=== PATIENT | female | born 1940 | race Caucasian/White ===

== ENCOUNTER 2025-01-29 12:59 | Inpatient (IN) | payer MEDICARE, OTHER, SELFPAY ==
[2025-01-29 08:45] VITALS: BP 177/59
[2025-01-29 09:47] VITALS: BMI 21.2
--- NOTE | 2025-01-29 09:50 | ED.GENMED ---
History of Present Illness
General
Chief Complaint: Breathing Problem
Source: patient and family
Time Seen by Provider: 01/29/25 09:30
History of Present Illness
History of Present Illness:
Note:
CHIEF COMPLAINT(S)
Cough, shortness of breath
HISTORY OF PRESENT ILLNESS
An 84-year-old female with a significant cardiac history presents with a two-day history of cough and shortness of breath. The patient reports experiencing dyspnea when lying flat the previous night. She also describes having a subjective fever at
home, for which she self-administered Tylenol, and a mild sore throat. The patient mentions a history of multiple valve replacements, including a [place]as valve, and is currently on Coumadin therapy. Her son, who also had upper respiratory symptoms
recently, accompanies her. She has a documented history of a pacemaker and an aortic valve replacement. Her INR has been well-managed with goals between 2.5 and 3.5. 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 The
patient also has a history of atrial fibrillation. There is no report of lower extremity edema, chest pain, or hemoptysis.
PAST MEDICAL AND SURGICAL HISTORY
History of multiple valve replacements, including a [place]. Manas valve and aortic valve replacement. History of atrial fibrillation and pacemaker insertion.
ADDITIONAL HISTORY OBTAINED FROM SOURCES OTHER THAN PATIENT
The patients son-in-law, a retired cold water machine operator, provided additional history, confirming her recent symptoms and medical background.
CHRONIC MEDICAL CONDITIONS SIGNIFICANTLY AFFECTING CARE
Atrial fibrillation, [place] valve with management with Coumadin with an INR goal of 2.5 to 3.5. Epistaxis
MEDICATIONS
Coumadin, Lasix.
PHYSICAL EXAM
General: Alert, no acute distress.
Skin: Warm, dry.
Head: Normocephalic, atraumatic.
Neck: Supple, trachea midline.
Eyes, Ears, Nose, Mouth, and Throat: Oral mucosa moist.
Cardiovascular: Normal peripheral perfusion, no edema.
Respiratory: Respirations are non-labored. few crackles to L and R base, no wheezes
CV: hear
Gastrointestinal: Abdomen nondistended.
Back: Normal range of motion, normal alignment.
Musculoskeletal: Normal range of motion, normal strength.
Neurological: Alert and oriented to person, place, time, and situation, no focal neurological deficit observed.
Psychiatric: Cooperative, appropriate mood & affect.
PROBLEM LIST
- Acute: Cough, shortness of breath, subjective fever
- Chronic: Atrial fibrillation, managed with Coumadin; pacemaker in situ; history of multiple valve replacements
DIFFERENTIAL DIAGNOSIS
The Differential Diagnosis includes, in no particular order and is not limited to:
1. Congestive heart failure
2. Respiratory infection
3. Pulmonary embolism
4. Medication side effect
5. Valvular heart disease
6. Atrial fibrillation-related symptoms
7. Chronic obstructive pulmonary disease (COPD) exacerbation
8. Pulmonary edema
9. Anemia
10. Cardiac arrhythmia
EKG
My independent EKG interpretation is:
- Rhythm: Ventricular-paced rhythm
- Heart rate: 60 bpm
- Note: Normal conduction of pacemaker
Disposition:
SUMMARY OF ENCOUNTER
The patient, an 84-year-old female with a significant cardiac history, presented to the emergency department with a cough and shortness of breath. Physical examination revealed rales and orthopnea. Laboratory findings indicated a BNP of 1650, a
negative troponin, and mild elevations of AST and ALT, possibly due to liver congestion. Her INR was consistent with Coumadin use at 2.35. White blood cell count and hemoglobin levels showed slight abnormalities. Due to her history of valve
replacements, orthopnea, and hypoxia, diuresis was initiated. The patient was placed on humidified oxygen therapy due to a history of nosebleeds, and oxymetazoline was ordered for nasal congestion. The primary care physician was contacted to discuss
her management, and admission was decided due to her hypoxia with oxygen saturation at 83%.
DISPOSITION
Admit
ASSESSMENT
The patients symptoms and laboratory findings suggest possible congestive heart failure exacerbation or pulmonary edema, likely related to her cardiac history and valve replacements.
EMERGENCY TREATMENTS ADMINISTERED
Diuresis therapy, humidified oxygen therapy, oxymetazoline for nasal congestion.
PLAN
Due to the patients severe hypoxia and underlying cardiac conditions, admission for further management and monitoring was decided. Initiation of diuresis to manage potential heart failure exacerbation and to monitor her response to treatment.
INDEPENDENT REVIEW OF LABS AND INTERPRETATION OF TESTS
- My independent review of BNP indicates significant elevation at 1650, suggesting volume overload or heart failure exacerbation.
- My independent review of the Troponin test shows negative results at 0.0, indicating no acute cardiac ischemia.
- My independent review of CMP shows mild elevation in AST and ALT, potentially due to liver congestion; otherwise, CMP is unremarkable.
- My independent review of CBC indicates a white blood cell count of 11.9, hemoglobin of 11.2, suggesting mild leukocytosis and anemia.
PATIENT EDUCATION AND COUNSELING
The patient and family were educated on the potential causes of her symptoms, including possible heart failure exacerbation, and the need for further monitoring and treatment in a hospital setting.
FOLLOW-UP INSTRUCTIONS
Follow-up with primary care and cardiology is recommended after discharge from the hospital to ensure appropriate management of her chronic conditions and to adjust therapy as needed.
MEDICATION RECONCILIATION
Oxymetazoline was ordered for nasal congestion management. Medication reconciliation confirms continued use of Coumadin and initiation of diuretic therapy.
MEDICAL DECISION MAKING
1. Number and Complexity of Problems Addressed: Chronic conditions affecting care include a history of multiple valve replacements, atrial fibrillation, and management with Coumadin. Differential Diagnosis includes congestive heart failure,
respiratory infection, pulmonary embolism, and valvular heart disease.
2. Data:
- Category 1: My independent interpretation of labs including BNP, Troponin, CMP, and CBC.
- Category 2: Historical information obtained from the patients son-in-law.
- Category 3: Discussion of care management conducted with the patients primary care physician.
3. Risk: Consideration was given for escalating care due to her symptoms and underlying comorbidities. The decision to admit was made based on the severity of her hypoxia and need for inpatient monitoring and treatment adjustment.
DIAGNOSIS
- Congestive Heart Failure (ICD-10: I50.9)
- Hypoxemia (ICD-10: R09.02)
- Atrial Fibrillation (ICD-10: I48.91)
- Anemia, Unspecified (ICD-10: D64.9)
Phy Exam
Physical Exam
Physical Exam:
.
Scores
Heart Failure Risk
Heart Failure Risk Score: Yes
History of Stroke or TIA: No
History of intubation for respiratory distress: No
Heart rate on ED arrival >/= 110: No
SaO2 <90% on arrival on room air: Yes
HR >/=110 during 3min walk test (or too ill to perform test): Yes
ECG has acute ischemic changes: No
Urea >/=12mmol/L (BUN 33.6mg/dL): Yes
Serum CO2>/=35mmol/L: No
Troponin I or T elevated to DC Level (0.4mg/dL): No
NT-proBNP >/=5,000ng/L (5,000pg/ml): No
HF Risk Score: 4
Admission Status: HIGH RISK 26.1% Consider SNF treatment or admission to hospital
Course
Orders/Labs/Results
Orders:
Orders
01/29/25 09:31
CR Chest - 2 Views Urgent
Comment:
Reason For Exam: cough, sob
01/29/25 09:51
Electrocardiogram (*1) Urgent
Reason for Study: Shortness of Breath
EKG- Treatment ONCE
01/29/25 09:56
Complete Blood Count/With Diff Urgent
Comprehensive Metabolic Panel Urgent
NT-proBNP Urgent
Prothrombin Time Urgent
Troponin I Urgent
01/29/25 10:52
Furosemide [Lasix] 40 mg IV NOW STA
01/29/25 11:07
COVID-19 Antigen Urgent
Source: Nasal Swab
01/29/25 11:31
CARDIOLOGY CONSULT Routine
Consulting Provider: Tiago Avina
Was physician already notified: Yes
01/29/25 12:28
Admit/Transfer Patient As Directed
Co-Sign Provider:
Level of Care: Inpatient admission
Assign to:: Telemetry
Physician / Group: Missael/hospitalist
Diagnosis: CHF
Reason for Telemetry: Acute Heart Failure
Date to Stop Telemetry: 02/01/25
Time to Stop Telemetry: 11:00
Reason for Hospitalization: CHF
Expected length of stay greater than two midnights?: Yes
ELOS- Estimated Length of Stay in days: 5
I certify the patient meets the requirements for IP care: Yes
PRN Pain Medication Management As Directed
May give lesser potent ordered pain med per pt: Yes
preference::
Protocol:: Medication orders for pain may be administered in a
manner that supports deferring to patient preference
when the pt is:
- Requesting an ordered lesser potent pain medication.
Least to most potent pain medications are defined
as: acetaminophen < NSAID < tramadol < opioids
(morphine, oxycodone, hydromorphone).
- Requesting a lesser dose of the same medication IF
ORDERED.
- Requesting a less intrusive route of administration
if both routes are prescribed by the provider (PO <
IV).
01/29/25 12:29
Code Status As Directed
Resuscitation Status: Full Code
01/29/25 12:56
Echo 2D MMode Color/Doppler Routine
Reason for Study: HF
01/29/25 13:35
Procalcitonin Routine
If negative, will antibiotics be d/c'd or not started: Yes
Does the patient have renal or hepatic impairment?: No
Any recent (w/in 48 hrs) physiologic stress (CPR, rhabdo): No
Influenza A+B Rapid Molecular Routine
EDWIGE Source: Nasal Swab
Specimen Description:
01/30/25 06:00
Digoxin IN AM
01/30/25 08:00
Furosemide [Lasix] 40 mg IV DAILY
02/01/25 11:00
DC Protocol for Telemetry ONCE
Abnormal Lab Results
01/29/25
09:56
WBC 11.9 H 10^3/uL
(4.8-10.8)
RBC 3.96 L 10^6/uL
(4.20-5.40)
Hgb 11.2 L g/dL
(12.0-16.0)
Hct 35.3 L %
(37.0-47.0)
MCHC 31.7 L g/dL
(33.0-37.0)
RDW 15.4 H %
(11.5-14.5)
MPV 11.7 H fL
(7.4-10.4)
Abs Immat Gran (auto) 0.1 H 10^3/uL
(0-0.05)
Absolute Neuts (auto) 10.8 H 10^3/uL
(1.4-6.5)
Absolute Lymphs (auto) 0.3 L 10^3/uL
(1.2-3.4)
Absolute Monos (auto) 0.8 H 10^3/uL
(0.1-0.6)
Neutrophils % 90.2 H %
(42.2-75.2)
Lymphocytes % 2.1 L %
(20.5-51.1)
PT 26.0 H Sec
(11.4-14.6)
Carbon Dioxide 32 H mmol/L
(22-30)
BUN 36 H mg/dl
(7-17)
Glucose 124 H mg/dl
(70-99)
AST 52 H U/L
(14-36)
ALT 46 H U/L
(0-35)
01/29/25 09:56
01/29/25 09:56
Vital Signs
Initial and Last Documented VS:
Initial Vital Signs
Temp Pulse Resp BP Pulse Ox
99.8 F 60 18 177/59 91
01/29/25 08:45 01/29/25 08:45 01/29/25 08:45 01/29/25 08:45 01/29/25 08:45
Last Documented Vital Signs
Temp Pulse Resp BP Pulse Ox
99.8 F 60 20 152/47 83
01/29/25 08:45 01/29/25 12:18 01/29/25 09:38 01/29/25 12:18 01/29/25 11:06
*Pulse Oximetry
SaO2: 83
Oxygen Mode of Delivery: Room air
Patient hypoxic: yes
*Critical Care Note
Total Time (30-74mins, 75-104mins- exclusive of procedures): 30 minutes
ED Attending Note
-
Portions of this chart may have been created with voice recognition software.� Occasional wrong word or��sound alike� substitutions may have occurred due to the inherent limitations of voice recognition software.
Discharge Plan
Departure
Patient Disposition: Admit
Date of Disposition: 01/29/25
Time of Disposition: 11:04
Admit to: Telemetry
Presentation/result/management discussed w/ accepting MD/DO: Hospitalist
Discharge Problem:
Acute CHF (congestive heart failure), Cardiac valvulopathy, Hypoxia
Interventions
Interventions:
*Risk Screen - Suicide Last Done: 01/29/25 08:45
*General Assessment Last Done: 01/29/25 08:45
*Neglect/Abuse Screening Last Done: 01/29/25 10:02
*ED COVID-19 Vaccine History Last Done: 01/29/25 08:45
*ED Influenza Vaccine History Last Done: 01/29/25 08:45
ED- Cardiac Assessment Last Done: 01/29/25 10:02
ED- Pulmonary Assessment Last Done: 01/29/25 10:02
[2025-01-29 10:04] LABS: Hematocrit 35.3 % (37.0-47.0); Hemoglobin 11.2 g/dL (12.0-16.0); Mean Corp Hgb Conc. 31.7 g/dL (33.0-37.0); Mean Corpuscular Volume 89.1 fL (81.0-99.0); Nucleated Red Blood Cells % 0 %; Platelet Count 150 10^3/uL (130-400); Red Cell Dist. Width 15.4 % (11.5-14.5)
[2025-01-29 10:20] LABS: INR 2.35; PT 26.0 Sec (11.4-14.6)
[2025-01-29 10:28] LABS: ALT (SGPT) 46 U/L (0-35); AST (SGOT) 52 U/L (14-36); Albumin 4.5 g/dl (3.5-5.0); Alkaline Phosphatase 105 U/L (38-126); Blood Urea Nitrogen 36 mg/dl (7-17); Calcium 9.8 mg/dl (8.4-10.2); Carbon Dioxide 32 mmol/L (22-30); Chloride 100 mmol/L (98-107); Estimated Creatinine Clearance 41 ml/min; Glucose 124 mg/dl (70-99); Potassium 4.3 mmol/L (3.5-5.1); Sodium 135 mmol/L (135-145); Total Protein 7.5 g/dl (6.3-8.2); eGFR > 60.00
[2025-01-29 10:30] LABS: Troponin I 0.021 ng/ml
[2025-01-29 10:46] VITALS: BP 146/46
[2025-01-29 11:00] VITALS: BP 152/47
[2025-01-29 11:29] LABS: COVID-19 Antigen Negative (Negative)
--- NOTE | 2025-01-29 11:32 | HPS.HSE ---
Family Physician
-
Family Physician: Ralph Watters MD
Chief Complaint
-
SOB/ALVARADO/orthopnea
History of Present Illness
HPI: 84-year-old female with PMH of multiple valve replacements including a [place]. [place] valve and aortic valve replacement on Coumadin (INR goal 2.5 to 3.5), atrial fibrillation, s/p pacemaker; p/w two-day history of mild cough, shortness of breath,
and orthopnea
She also described subjective fever at home for which she took Tylenol. She has mild sore throat.
She denies to chest pain, abd pain, or other symptoms.
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
Medical History
Past Medical History
Past Medical History: Reports Other
Additional Past Medical History:
multiple valve replacements including a [place]. Manas valve and aortic valve replacement on Coumadin (INR goal 2.5 to 3.5),
atrial fibrillation,
s/p pacemaker
Past Surgical History: Reports Cardiac (TAVR)
Social History
Tobacco: Non-smoker
Living: With Family
Family History
Family History: Not pertinent
Allergies / Home Medications
Allergies reflects when Allergies were last updated in [employer]
Home Medications with original date entered in [employer]
Allergy/Medication List:
Allergies
Allergy/AdvReac Type Severity Reaction Status Date / Time
No Known Allergies Allergy Unverified 01/29/25 08:51
Home Medications
acetaminophen 325 mg tablet (Tylenol) 650 mg PO Q6HPRN PRN mild pain 01/29/25
atenolol 25 mg tablet 25 mg PO DAILY 01/29/25
digoxin 125 mcg (0.125 mg) tablet 125 mcg PO MOTUWETHFR 01/29/25
diphenhydramine HCl 25 mg capsule (Benadryl) 25 mg PO HSPRN PRN allergies 01/29/25
furosemide 20 mg tablet (Lasix) 20 mg PO DAILY 01/29/25
gabapentin 300 mg capsule 300 mg PO BID 01/29/25
guaifenesin 100 mg/5 mL oral liquid 200 mg PO BIDPRN PRN cough 01/29/25
spironolactone 25 mg tablet 25 mg PO DAILY 01/29/25
Review of Systems
-
Respiratory: Reports See HPI and Trouble Breathing
Cardiac: Denies Chest Pain
Physical Exam
Vital Signs
Vital Signs
Temp Pulse Resp BP Pulse Ox
37.7 C 65 20 177/59 83
01/29/25 08:45 01/29/25 09:38 01/29/25 09:38 01/29/25 08:45 01/29/25 11:06
Physical Exam
General: Well Developed, Well Nourished, Comfortable, Conversant and Respiratory Distress
HEENT: NormoCephalic, Moist mucous membranes, Atraumatic and Oxygen (5L face mask )
Respiratory: Clear, Crackles and Non Labored Respirations; No Accessory Resp Muscle Use
Cardiac: S1/S2 and Regular Rhythm; No Murmur or Rub
GI: Soft, Non Tender, Non Distended and Normal Bowel Sounds; No Organomegaly
Rectal: Deferred by Provider
Musculoskeletal: No Clubbing, No Cyanosis, Edema, Left Lower Extremity and Edema, Right Lower Extremity
Skin: No Rash
Neuro: Awake and Alert
Psych: Calm and Intact Judgment/Insight
Laboratory Results
-
01/29/25 09:56
01/29/25 09:56
Laboratory Results
PT 26.0 Sec (11.4-14.6) H 01/29/25 09:56
INR 2.35 01/29/25 09:56
Total Bilirubin 0.7 mg/dl (0.2-1.3) 01/29/25 09:56
AST 52 U/L (14-36) H 01/29/25 09:56
ALT 46 U/L (0-35) H 01/29/25 09:56
Alkaline Phosphatase 105 U/L (38-126) 01/29/25 09:56
Troponin I 0.021 ng/ml 01/29/25 09:56
Data Reviewed
-
Diagnostic Radiology: Image Personally Visualized and interpreted and Report Reviewed by me
Lab Data: Labs Reviewed by me
Impression/Plan
-
HPI: 84-year-old female with PMH of multiple valve replacements including a [place]. Man[place] valve and aortic valve replacement on Coumadin (INR goal 2.5 to 3.5), atrial fibrillation, s/p pacemaker; p/w two-day history of mild cough, shortness of breath,
and orthopnea
She also described subjective fever at home for which she took Tylenol. She has mild sore throat.
She denies to chest pain, abd pain, or other symptoms.
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
CXR:
1. Mild acute interstitial cardiogenic pulmonary edema.
2. Mild to moderate elevation of the right hemidiaphragm.
3. Moderate to severe cardiomegaly.
4. Previous tricuspid valve replacement.
5. Previous TAVR.
6. Cardiac pacemaker in place.
A/P:
# Acute hypoxic respiratory failure
# Acute on chronic CHF, unknown type, suspect related to underlying valvular disease
83% on RA, placed on 5L face mask (face mask chosen over NS due to easy epistaxis). Wean O2 as tolerated, pt not on home O2.
COVID negative,
check Flu and procal 2/2 subjective fever at home
s/p IV lasix 40 mg in ED, cont IV lasix 40 mg daily
Monitor daily weight, I/O
Check echo
Card CS
Pt follow with Dr Cuevas and Dr Moscoso at [facility], will try to get record.
She has moved to [place], hence will need to reestablish care here
# Suspect non-PA troponin elevation
Follow Trop until peak/plateau
Pt denies to chest pain
# h/o multiple valve replacements including a [place]. Man[place] valve and aortic valve replacement on Coumadin (INR goal 2.5 to 3.5)
# atrial fibrillation s/p pacemaker
Cont [employer] Coumadin, monitor daily INR
DVT ppx: [employer] Coumadin
FC
[2025-01-29] MEDS: LASIX 40 MG IV (12:18)
--- NOTE | 2025-01-29 12:19 | CON.CAR ---
Consultation
Consultation Request
Date/Time Consultation Requested: 01/29/2025, 1131
Date/Time Consultation Performed: 01/29/2025, 1200
Requesting Provider: Dr Canas
Performing Provider: Dr Avina
Reason for Consultation: HF
Medical History
-
Chief Complaint: SOB
History of Present Illness:
Patient is a very pleasant 84-year-old female with a past medical history significant for mechanical mitral valve 1995, single-chamber epicardial pacemaker placed in 2013 with generator change 2022, tricuspid valve replacement 2013 at hospital
[facility], aortic stenosis status post TAVR May 2021, permanent atrial fibrillation, hypertension, heart failure with unknown EF who presents due to worsening shortness of breath and fatigue. Patient states that she has been
experiencing increasing shortness of breath the last 24 hours but has noticed some orthopnea and PND as well. She denies any chest pain, palpitations, lightheadedness, dizziness, near-syncope syncope, or weakness. Trace edema noted by patient and
family as well. Due to worsening shortness of breath, patient presented to hospital for evaluation. Initial evaluation demonstrates BNP of 1650 with a negative troponin. EKG demonstrates V pacing. Patient hypertensive with hypoxia improved with
supplemental O2. Patient has recurrent nosebleeds and sinus issues therefore requesting facemask versus nasal cannula. COVID testing negative. Chest x-ray demonstrates pulmonary edema with cardiomegaly. Patient follows with a supervisor grounds
through [facility], Dr. Beau Cuevas who is retiring and is also now seeing Dr. Kristopher Moscoso again through [facility]. Patient states that she was seen by her cardiologists earlier this year. She reports last
cardiovascular testing was unremarkable 1 year ago. Patient is a non-smoker, no alcohol, no illicits. Patient is a positive family history of heart disease. Records unavailable for review at this time.
Past Medical History
Past Medical History: Other (See HPI)
Past Surgical History: Other (See HPI)
Social History
Tobacco: Non-Smoker
Alcohol: None
Drug: None
Living: With Family
Employment: Retired
Family History
Family History: Other (See HPI)
Allergies / Home Medications
Allergy/AdvReac Type Severity Reaction Status Date / Time
No Known Allergies Allergy Unverified 01/29/25 08:51
�Medication �Instructions �Recorded �Confirmed �Type
acetaminophen 325 mg tablet 650 mg PO Q6HPRN PRN mild pain 01/29/25 01/29/25 History
(Tylenol)
atenolol 25 mg tablet 25 mg PO DAILY 01/29/25 01/29/25 History
digoxin 125 mcg (0.125 mg) tablet 125 mcg PO MOTUWETHFR 01/29/25 01/29/25 History
diphenhydramine HCl 25 mg capsule 25 mg PO HSPRN PRN allergies 01/29/25 01/29/25 History
(Benadryl)
furosemide 20 mg tablet (Lasix) 20 mg PO DAILY 01/29/25 01/29/25 History
gabapentin 300 mg capsule 300 mg PO BID 01/29/25 01/29/25 History
guaifenesin 100 mg/5 mL oral liquid 200 mg PO BIDPRN PRN cough 01/29/25 01/29/25 History
spironolactone 25 mg tablet 25 mg PO DAILY 01/29/25 01/29/25 History
Review of Systems
-
History Source: Patient and Family
All other systems: Negative unless noted
Constitutional: Fever
EENT: No Symptoms
Respiratory: Cough and Trouble Breathing
Cardiac: No Symptoms
Abdomen/GI: No Symptoms
: No Symptoms
Musculoskeletal: Edema
Skin: No Symptoms
Neurological: No Symptoms
Endocrine: No Symptoms
Hematologic/Lymphatic: No Symptoms
Physical Exam
Vital Signs
Temp Pulse Resp BP Pulse Ox
99.8 F 65 20 177/59 83
01/29/25 08:45 01/29/25 09:38 01/29/25 09:38 01/29/25 08:45 01/29/25 11:06
Lab Results
01/29/25 09:56
01/29/25 09:56
Troponin I 0.021 ng/ml 01/29/25 09:56
Vxv-A-Mlhdawnnyty Pept 1650 pg/ml 01/29/25 09:56
Physical exam:
GENERAL: no acute distress
EYE: sclera anicteric
NECK: Supple, no JVD, no carotid bruit appreciated
ENT: normal nose, moist mucosal membranes
CARDIAC: Regular rate and rhythm, mechanical click, 1/6 systolic murmur; no rubs, or gallops; left-sided CIED site well-healed
CHEST/PULMONARY: Normal effort, bibasilar crackles/rhonchi
ABDOMEN: Soft, without focal tenderness or distention
NEUROLOGICAL: Alert and oriented x3
SKIN: Warm and dry, no rash; 1+ bilateral lower extremity edema
PSYCH: Normal and appropriate interaction.
Telemetry shows V pacing
Impression / Plan
-
Blower Operator: Dr. Beau Cuevas, Dr. Kristopher Moscoso - through [facility]
Assessment:
Acute on chronic heart failure, unknown EF
� BNP 1650
� Volume overload on exam
� Chest x-ray demonstrating pulmonary edema
� EKG V pacing
� Hypoxia noted
� On Lasix 20 mg daily, digoxin, atenolol, Aldactone as outpatient
Respiratory failure, multifactorial
� Likely related to acute on chronic heart failure
� Subjective fevers reported by patient unclear if infection also playing a role
� Hypoxia in emergency department off oxygen, facemask placed with humidification
Atrial fibrillation, unclear duration
� EKG demonstrates what appears to be A-fib with V pacing
� Device interrogation pending
� On Coumadin goal INR 2.5-3.5 due to mechanical valve
Valvular heart disease
� status post TAVR 2021
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
� Maintained on Coumadin goal INR 2.5�3.5; INR 2.35 on admission here
Hypertension
Recommendations:
� Obtain medical records from [facility] of patient's primary supervisor grounds; reviewed this with hospitalist
� Device interrogation
� IV diuresis with strict intake and output, daily weights would start with Lasix 40 mg daily and monitor response
� 2D echocardiogram to assess cardiac size, shape, function, and valvular anatomy
� Continue Coumadin goal INR 2.5�3.5
� Replete electrolytes goal potassium greater than 4, magnesium greater than 2
� Monitor on telemetry
� Further recommendations to follow
Discussed with hospitalist, nursing, patient, family
Data Reviewed
-
EKG: Tracing Personally Visualized and interpreted
Radiology: Report Reviewed by me
Labs: Labs Reviewed by me
Old Records: Requested
--- NOTE | 2025-01-29 13:16 | CM ---
Chart reviewed and spoke with patient and son Arnold at ED bedside
She lives alone in [address]
Independent with ADLs and ambulation
Dtr Friday and her in [place] help as needed
Son rAnold is visiting from [place] and returning back next week
no DME
PCP Dr. Ralph Watters
Rx plan yes
Pharmacy [facility]
no hx of VN nor SNF
DCP is to go home with services vs SNF
May need home O2
Dtr can drive her if needed
CM will continue to follow up for any dcp needs
[2025-01-29 14:33] LABS: Procalcitonin 0.25 ng/ml (0.0-0.25)
[2025-01-29 16:29] VITALS: BMI 21.2
[2025-01-29 16:39] VITALS: BP 148/51
--- NOTE | 2025-01-29 17:00 | PTCARENOTE ---
Pt was received from ED at 1645. Pt was pulled over to the unit bed. Dyspnea on rest and exertion, O2 mask on 5liters, POX 96%. Pt is AAOx3, VSS, temp 99.6. Pt requesting to get 4mg of Coumadin tonight to help keep her INR in a goal range of 2.[address] Canas notified. $mg Coumadin ordered.
[2025-01-29] MEDS: COUMADIN 4 MG PO (17:25)
[2025-01-29 18:04] VITALS: BMI 21.1
[2025-01-29 18:34] LABS: Troponin I 0.021 ng/ml
[2025-01-29 19:42] VITALS: BP 125/43
[2025-01-29] MEDS: NEURONTIN 300 MG PO (20:07)
[2025-01-29] MEDS: BENADRYL 25 MG PO (20:20)
[2025-01-29] MEDS: ROBITUSSIN 200 MG PO (20:20)
[2025-01-29] MEDS: TYLENOL 650 MG PO (20:20)
[2025-01-29 23:24] VITALS: BP 115/47
[2025-01-30] VITALS (7 sets, daily range): BP systolic 125–142; BP diastolic 46–57; O2SAT 95; BMI 19.8
[2025-01-30 01:48] LABS: Troponin I 0.114 ng/ml
[2025-01-30] MEDS: ROBITUSSIN 200 MG PO ×2 (03:28→15:16)
[2025-01-30 07:14] LABS: Hematocrit 32.5 % (37.0-47.0); Hemoglobin 10.3 g/dL (12.0-16.0); Mean Corp Hgb Conc. 31.7 g/dL (33.0-37.0); Mean Corpuscular Volume 92.3 fL (81.0-99.0); Platelet Count 136 10^3/uL (130-400); Red Cell Dist. Width 15.7 % (11.5-14.5)
[2025-01-30 07:19] LABS: INR 2.92; PT 30.7 Sec (11.4-14.6)
[2025-01-30 07:38] LABS: Troponin I 0.100 ng/ml
[2025-01-30 07:54] LABS: Blood Urea Nitrogen 37 mg/dl (7-17); Calcium 9.5 mg/dl (8.4-10.2); Carbon Dioxide 33 mmol/L (22-30); Chloride 103 mmol/L (98-107); Digoxin 0.6 ng/ml (0.8-2.0); Estimated Creatinine Clearance 39 ml/min; Glucose 82 mg/dl (70-99); Magnesium 2.4 mg/dl (1.6-2.3); Potassium 4.1 mmol/L (3.5-5.1); Sodium 139 mmol/L (135-145); eGFR > 60.00
[2025-01-30] MEDS: TENORMIN 25 MG PO (08:07)
[2025-01-30] MEDS: LASIX 40 MG IV (08:07)
[2025-01-30] MEDS: NEURONTIN 300 MG PO ×2 (08:07→21:08)
[2025-01-30] MEDS: ALDACTONE 25 MG PO (08:08)
[2025-01-30] MEDS: LANOXIN 125 MCG PO (08:09)
--- NOTE | 2025-01-30 09:32 | W.PN.HOSP.TC ---
Today's Communication/Plan
-
see A/P
Assessment / Plan
Assessment / Plan
HPI: 84-year-old female with PMH of multiple valve replacements including a [employer] [place]as valve and aortic valve replacement on Coumadin (INR goal 2.5 to 3.5), atrial fibrillation, s/p pacemaker; p/w two-day history of mild cough, shortness of breath,
and orthopnea
She also described subjective fever at home for which she took Tylenol. She has mild sore throat.
She denies to chest pain, abd pain, or other symptoms.
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
CXR:
1. Mild acute interstitial cardiogenic pulmonary edema.
2. Mild to moderate elevation of the right hemidiaphragm.
3. Moderate to severe cardiomegaly.
4. Previous tricuspid valve replacement.
5. Previous TAVR.
6. Cardiac pacemaker in place.
A/P:
# Acute hypoxic respiratory failure
# Acute on chronic diastolic HF, suspect related to underlying valvular disease
83% on RA, was placed on 5L face mask, now weaned to RA. Pt not on home O2.
COVID/Flu negative,
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
cont IV Lasix 40 mg daily
Monitor daily weight, I/O
Check echo
Card on board
Pt follow with Dr Cuevas and Dr Moscoso at [facility], she has moved to [place], hence will need to reestablish care here
# Elevated LFT likely related to acute CHF
Monitor LFT
# Suspect non-RI troponin elevation
Trend trop
Pt denies to chest pain
# h/o multiple valve replacements including a [place] [place]as valve and aortic valve replacement on Coumadin (INR goal 2.5 to 3.5)
# atrial fibrillation s/p pacemaker
Cont HARDWARE DESIGN ENGINEER Coumadin, monitor daily INR
DVT ppx: HARDWARE DESIGN ENGINEER Coumadin, daily INR
FC
DW Card
DW RN
updated family on the phone
total time 51 min
Anticipated Discharge: > 48 hours
Subjective/Interval History
-
Date of Service: January 30, 2025
Objective Data
-
Labs:
Laboratory Results
01/30/25
05:48
WBC 9.9
Hgb 10.3 L
Hct 32.5 L
Plt Count 136
PT 30.7 H
INR 2.92
Sodium 139
Potassium 4.1
Chloride 103
Carbon Dioxide 33 H
BUN 37 H
Creatinine 0.9
Glucose 82
Calcium 9.5
Vital Signs:
Vital Signs
Temp Pulse Resp BP Pulse Ox
37.1 C 60 18 125/46 95
01/30/25 07:20 01/30/25 08:09 01/30/25 07:20 01/30/25 07:20 01/30/25 07:20
I&O
01/29/25 01/30/25 01/31/25
06:59 06:59 06:59
Output Total 150 / 150
Balance -150 / -150
Review of Systems
-
History Source: Patient
All other systems: Reviewed and negative
Respiratory: Reports Trouble Breathing (improved)
Physical Exam
-
General: Well Developed, Well Nourished, Comfortable and Conversant
HEENT: Normocephalic, Atraumatic, Nose Appears Normal and Ears Appear Normal; Negative Oxygen
Respiratory: Clear to Auscultation and Non Labored Respirations; Negative Accessory Resp Muscle Use
Cardiac: Regular Rhythm and S1/S2
GI: Soft, Nontender, Nondistended and Normal Bowel Sounds
Musculoskeletal: Negative Edema, Right Lower Extrem or Edema, Left Lower Extrem
Skin: Warm and Dry
Neuro: Awake, Alert, Oriented and AO x 3
Psych: Calm and Intact Judgement/Insight
Data Reviewed
-
Diagnostic Radiology: Report Reviewed by me
Labs: Labs Reviewed by me
[2025-01-30] MEDS: AUGMENTIN 875 MG/125 MG 1 TABLET PO ×2 (10:13→21:08)
[2025-01-30] MEDS: VIBRAMYCIN 100 MG PO (10:13)
--- NOTE | 2025-01-30 11:11 | W.PN.CARDCBS ---
Today's Communication / Plan
-
Continue IV diuresis
2D echocardiogram
Impression / Plan
-
Manager Of Organizational Development: Dr. Beau Cuevas, Dr. Kristopher Moscoso - through [facility]
Assessment:
Acute on chronic heart failure, preserved EF, improving
� BNP 1650
� Volume overload on exam
� Chest x-ray demonstrating pulmonary edema
� EKG V pacing
� TTE 04/2024 reported as EF 50-55%, mildly dilated LA, mechanical mitral valve, annuloplasty tricuspid ring, mild TR, bioprosthetic aortic valve (TAVR)
� On Lasix 20 mg daily, digoxin, atenolol, Aldactone as outpatient
Respiratory failure, multifactorial, improving
� Likely related to acute on chronic heart failure
� Subjective fevers reported by patient unclear if infection also playing a role
� Hypoxia in emergency department off oxygen, facemask placed with humidification
Atrial fibrillation, unclear duration
� EKG demonstrates what appears to be A-fib with V pacing
� Device interrogation pending
� On Coumadin goal INR 2.5-3.5 due to mechanical valve
Valvular heart disease
� status post TAVR 2021
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
� Maintained on Coumadin goal INR 2.5�3.5; INR 2.35 on admission here
Hypertension
Recommendations:
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
� Device interrogation
� IV diuresis with strict intake and output, daily weights would start with Lasix 40 mg daily and monitor response; patient improving overall with IV diuresis, continue given improved weights. Appreciate strict intake and output
� 2D echocardiogram to assess cardiac size, shape, function, and valvular anatomy
� Continue Coumadin goal INR 2.5�3.5
� Replete electrolytes goal potassium greater than 4, magnesium greater than 2
� Monitor on telemetry
Discussed with hospitalist, nursing, patient, family
Progress Note - Manager Of Organizational Development
Subjective
Date of Service: January 30, 2025
Patient seen and examined this morning. No acute events overnight. Patient resting comfortably. She notes mild shortness of breath but overall improved. Denies chest pain, palpitations, weakness
Objective
Labs:
01/30/25 05:48
01/30/25 05:48
Labs
Hgb 10.3 g/dL (12.0-16.0) L 01/30/25 05:48
Hct 32.5 % (37.0-47.0) L 01/30/25 05:48
Plt Count 136 10^3/uL (130-400) 01/30/25 05:48
PT 30.7 Sec (11.4-14.6) H 01/30/25 05:48
INR 2.92 01/30/25 05:48
Sodium 139 mmol/L (135-145) 01/30/25 05:48
Potassium 4.1 mmol/L (3.5-5.1) 01/30/25 05:48
BUN 37 mg/dl (7-17) H 01/30/25 05:48
Creatinine 0.9 mg/dL (0.6-1.0) 01/30/25 05:48
Glucose 82 mg/dl (70-99) 01/30/25 05:48
Digoxin 0.6 ng/ml (0.8-2.0) L 01/30/25 05:48
Troponins
01/29/25 01/29/25 01/30/25
09:56 18:01 01:07
Troponin I 0.021 0.021 0.114 H* D
01/30/25
05:48
Troponin I 0.100 H*
Vital Signs and I&O:
Vital Signs
Temp Pulse Resp BP Pulse Ox
98.7 F 60 18 125/46 94
01/30/25 07:20 01/30/25 08:09 01/30/25 07:20 01/30/25 07:20 01/30/25 09:59
Vital Signs
Temp Pulse Resp BP Pulse Ox
98.7 F 60 18 125/46 94
01/30/25 07:20 01/30/25 08:09 01/30/25 07:20 01/30/25 07:20 01/30/25 09:59
Intake & Output
01/28/25 01/29/25 01/30/25 01/31/25
06:59 06:59 06:59 06:59
Output Total 150 / 150
Balance -150 / -150
Physical Exam
Physical Exam
GENERAL: no acute distress
EYE: sclera anicteric
NECK: Supple, no JVD, no carotid bruit appreciated
ENT: normal nose, moist mucosal membranes
CARDIAC: Regular rate and rhythm, mechanical click, 1/6 systolic murmur; no rubs, or gallops; left-sided CIED site well-healed
CHEST/PULMONARY: Normal effort, bibasilar crackles/rhonchi
ABDOMEN: Soft, without focal tenderness or distention
NEUROLOGICAL: Alert and oriented x3
SKIN: Warm and dry, no rash; 1+ bilateral lower extremity edema
PSYCH: Normal and appropriate interaction.
Telemetry shows V pacing
[2025-01-30 12:21] LABS: Troponin I 0.073 ng/ml
[2025-01-30] MEDS: TYLENOL 650 MG PO (15:59)
[2025-01-30] MEDS: COUMADIN 3.5 MG PO (17:29)
[2025-01-30 18:46] LABS: Troponin I 0.065 ng/ml
[2025-01-31 03:08] VITALS: BP 121/52
[2025-01-31 06:00] VITALS: BMI 19.8
[2025-01-31 07:30] VITALS: BP 151/59
[2025-01-31] MEDS: TENORMIN 25 MG PO (07:55)
[2025-01-31] MEDS: NEURONTIN 300 MG PO ×2 (07:55→20:37)
[2025-01-31] MEDS: ALDACTONE 25 MG PO (07:55)
[2025-01-31] MEDS: AUGMENTIN 875 MG/125 MG 1 TABLET PO ×2 (07:55→20:37)
[2025-01-31] MEDS: VIBRAMYCIN 100 MG PO (07:55)
[2025-01-31] MEDS: LASIX 40 MG IV (07:56)
[2025-01-31] MEDS: FLUSH (NSS) 1 FLUSH IV (07:56)
[2025-01-31 08:44] LABS: Hematocrit 34.8 % (37.0-47.0); Hemoglobin 11.0 g/dL (12.0-16.0); Mean Corp Hgb Conc. 31.6 g/dL (33.0-37.0); Mean Corpuscular Volume 91.6 fL (81.0-99.0); Platelet Count 144 10^3/uL (130-400); Red Cell Dist. Width 15.7 % (11.5-14.5)
[2025-01-31 08:53] LABS: INR 2.90; PT 30.6 Sec (11.4-14.6)
[2025-01-31] MEDS: LANOXIN 125 MCG PO (09:08)
[2025-01-31 09:25] LABS: ALT (SGPT) 36 U/L (0-35); AST (SGOT) 34 U/L (14-36); Albumin 4.0 g/dl (3.5-5.0); Alkaline Phosphatase 104 U/L (38-126); Blood Urea Nitrogen 42 mg/dl (7-17); Calcium 9.3 mg/dl (8.4-10.2); Chloride 99 mmol/L (98-107); Estimated Creatinine Clearance 39 ml/min; Glucose 94 mg/dl (70-99); Potassium 4.0 mmol/L (3.5-5.1); Sodium 138 mmol/L (135-145); Total Protein 7.0 g/dl (6.3-8.2); eGFR > 60.00
[2025-01-31 09:48] LABS: Carbon Dioxide 34 mmol/L (22-30)
[2025-01-31 11:10] VITALS: BP 153/62
[2025-01-31 11:20] VITALS: BMI 19.8
--- NOTE | 2025-01-31 11:50 | W.PN.HOSP.TC ---
Today's Communication/Plan
-
cont abx for fever, cough, if worsens may need CT Chest
Assessment / Plan
Assessment / Plan
84[address] with [place] Manas valve and aortic valve replacement on Coumadin (INR goal 2.5 to 3.5), atrial fibrillation, s/p pacemaker; p/w two-day history of mild cough, shortness of breath, and orthopnea
She also described subjective fever at home for which she took Tylenol. She has mild sore throat.
She denies to chest pain, abd pain, or other symptoms.
A/P:
Acute on chronic diastolic HF
suspect related to underlying valvular disease
COVID/Flu negative
cont IV Lasix 40 mg daily
Monitor daily weight, I/O
echo pending
Cards on board
Pt follow with Dr Cuevas and Dr Moscoso at [facility], she has moved to [place], hence will need to reestablish care here
Mild transaminitis resolved, was likely congestive hepatopathy due to CHF
Fever
Possible pneumonia
Noted procal 0.25
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
supportive care for cough
Acute hypoxic respiratory failure -resolved, on room air
83% on RA, was placed on 5L face mask, now weaned to RA. Pt not on home O2.
Acute nonischemic myocardial injury
Due to acute CHF
Trope peaked at 0.114
Pt denies to chest pain
h/o multiple valve replacements
including a [place] valve and aortic valve replacement on Coumadin (INR goal 2.5 to 3.5)
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
Cont HUB INVENTORY SPECIALIST Coumadin, monitor daily INR
Atrial fibrillation s/p pacemaker
HR controlled, on AC
DVT ppx: Coumadin
Anticipated Discharge: 24 - 48 hours
Subjective/Interval History
-
Date of Service: January 31, 2025
Patient states she is still having a cough, but her breathing is feeling better
Objective Data
-
Labs:
Laboratory Results
01/31/25 01/31/25
07:30 07:31
WBC 8.0
Hgb 11.0 L
Hct 34.8 L
Plt Count 144
PT 30.6 H
INR 2.90
Sodium 138
Potassium 4.0
Chloride 99
Carbon Dioxide 34 H
BUN 42 H
Creatinine 0.9
Glucose 94
Calcium 9.3
Total Bilirubin 0.6
AST 34
ALT 36 H
Alkaline Phosphatase 104
Vital Signs:
Vital Signs
Temp Pulse Resp BP Pulse Ox
98.5 F 60 16 151/59 94
01/31/25 07:30 01/31/25 09:08 01/31/25 07:30 01/31/25 07:56 01/31/25 07:53
I&O
01/30/25 01/31/25 02/01/25
06:59 06:59 06:59
Intake Total 1020 / 1020
Output Total 150 / 150 750 / 750
Balance -150 / -150 270 / 270
Review of Systems
-
All other systems: Reviewed and negative
Physical Exam
-
General: No Apparent Distress
HEENT: Moist Mucous Membranes, Anicteric and PERRLA
Respiratory: Clear to Auscultation and Rales (LLL); Negative Wheezes or Rhonchi
Cardiac: Regular Rhythm, S1/S2 and Murmur (Loud click murmur); Negative Rub or Gallop
GI: Soft, Nontender, Nondistended and Normal Bowel Sounds
Musculoskeletal: No Edema
Skin: Warm and Dry; Negative Rash, Ulcers or Lesions
Neuro: Awake and AO x 3
Hematologic / Lymphatic: No Lymphadenopathy
Psych: Calm
Data Reviewed
-
Diagnostic Radiology: Report Reviewed by me and Discussed with Patient
Labs: Labs Reviewed by me and Discussed with Patient
--- NOTE | 2025-01-31 13:33 | W.PN.CARDCBS ---
Addendum entered and electronically signed by Sea Peralta MD 01/31/25 13:59:
I saw and examined the patient.
The ART FRAMING MANAGER or PA's note was reviewed and I agree with the note.
Comment: General: Well developed, well nourished in NAD.
Neck: Supple, no JVD, HJR, carotids +2 B/L, no bruits bilaterally.
Heart: Non displaced PMI, RRR, no murmurs, No S3, S4, no rubs.
Lungs: Scattered rhonchi
Extremities: No clubbing, cyanosis or edema bilaterally.
Neuro: Grossly nonfocal, awake, alert and oriented x3.
She has improved with diuresis. Will continue IV Lasix and antibiotics. Possibly change to oral Lasix on 02/01
Original Note:
Today's Communication / Plan
-
Ongoing diuresis
Bed scale weights of questionable accuracy
Impression / Plan
-
PCP: Dr. Ralph Watters
Blocker And Polisher: Dr. Beau Cuevas, Dr. Kristopher Moscoso - through [facility]
Impression:
Admitted with acute hypoxic respiratory failure and acute HF 01/29/2025
Acute hypoxic respiratory failure
Acute HFpEF
Elevated troponin
Atrial fibrillation of unknown chronicity and duration
Suspect permanent A-fib with near 100% ventricular pacing and single-chamber device
s/p Medtronic single-chamber PPM
s/p mechanical MVR 1995
Chronic warfarin OAC with INR goal of 2.5-3.5
s/p tricuspid valve ring repair 2013
s/p TAVR 2021
HTN
Echo 04/2024: [place] study, EF 50-55%, mildly dilated LA, mechanical mitral valve, annuloplasty tricuspid ring, mild TR, bioprosthetic aortic valve (TAVR)
Echo 01/31/2025: EF 40 to 45%, basal and mid inferior septum are akinetic with hypokinesis of the apical septum and basal anteroseptal segment, normal RV size and function, mechanical MVR with mean transmitral gradient of 5 mmHg and trace MR,
tricuspid annuloplasty ring present with mean TV gradient 6 mmHg and mild TR, TAVR present with peak/mean 18/10 mmHg and no evidence of aortic regurgitation
Plan:
-Patient came to the ER on 01/29/2025 as a new patient, she primarily follows with [facility] in [place] and she lives in [place], patient had symptoms of SOB and was admitted with what appeared to be acute HF and cardiology was consulted.
-Weight is down as much as 8 lbs depending on how accurate the recorded bed scale weights are. I&O not being accurately recorded. All VS reviewed by me 01/31/2025. Oxygen requirements have improved and patient is now stable on RA.
-Patient is diuresing with Lasix 40 mg IV daily. Patient was taking Lasix 40 mg PO daily prior to admission.
-Labs reviewed by me 01/31/2025 and Cre is stable at 0.9
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
-Outpatient dose of atenolol 25 mg daily has been continued
-Outpatient dose of spironolactone 25 mg daily has been continued
-Patient has atrial fibrillation of unclear chronicity and duration, but based on device interrogation reviewed by me on 01/31/2025 atrial fibrillation is permanent. Patient has a single-chamber device in place. Patient is V pacing almost 98% of
the time.
-Outpatient dose of digoxin 125 mg [id number] has been continued and digoxin level was low at 0.6 on admission.
-Patient is chronically on warfarin for her history of mechanical MVR in 1995, INR goal is 2.5-3.5. INR was 2.35 on admission and is up to 2.9 on my review of labs 01/31/2025. Outpatient dosing of warfarin 4 mg MoFr and 3.5 mg all other days has
been continued. Daily INR's are ordered, order confirmed by me.
Progress Note - Blocker And Polisher
Subjective
Date of Service: January 31, 2025
Less SOB
Objective
Labs:
01/31/25 07:30
01/31/25 07:31
Labs
Hgb 11.0 g/dL (12.0-16.0) L 01/31/25 07:30
Hct 34.8 % (37.0-47.0) L 01/31/25 07:30
Plt Count 144 10^3/uL (130-400) 01/31/25 07:30
PT 30.6 Sec (11.4-14.6) H 01/31/25 07:31
INR 2.90 01/31/25 07:31
Sodium 138 mmol/L (135-145) 01/31/25 07:31
Potassium 4.0 mmol/L (3.5-5.1) 01/31/25 07:31
BUN 42 mg/dl (7-17) H 01/31/25 07:31
Creatinine 0.9 mg/dL (0.6-1.0) 01/31/25 07:31
Glucose 94 mg/dl (70-99) 01/31/25 07:31
Digoxin 0.6 ng/ml (0.8-2.0) L 01/30/25 05:48
Troponins
01/29/25 01/29/25 01/30/25
09:56 18:01 01:07
Troponin I 0.021 0.021 0.114 H* D
01/30/25 01/30/25 01/30/25
05:48 11:41 18:09
Troponin I 0.100 H* 0.073 H* D 0.065 H*
Vital Signs and I&O:
Vital Signs
Temp Pulse Resp BP Pulse Ox
98.8 F 61 18 153/62 96
01/31/25 11:10 01/31/25 11:10 01/31/25 11:10 01/31/25 11:10 01/31/25 11:10
Vital Signs
Temp Pulse Resp BP Pulse Ox
98.8 F 61 18 153/62 96
01/31/25 11:10 01/31/25 11:10 01/31/25 11:10 01/31/25 11:10 01/31/25 11:10
Intake & Output
01/29/25 01/30/25 01/31/25 02/01/25
06:59 06:59 06:59 06:59
Intake Total 1020 / 1020
Output Total 150 / 150 750 / 750
Balance -150 / -150 270 / 270
Physical Exam
Physical Exam
GEN: NAD
LUNGS: RA. No audible wheeze
CV: V paced with underlying A-fib on telemetry.
--- NOTE | 2025-01-31 13:37 | W.CARD.DEVCH ---
Cardiac Device Check
-
Device: Pacemaker
Guide Changer: Medtronic (Single-chamber device)
The patient's device was interrogated with assistance of the device senior human resources representative followed by a complete physician review. The device had normal function. No abnormalities seen.
Patient's device check reviewed by me, patient appears to be V paced almost 98% of the time, no ventricular arrhythmia, greater than 12 years of battery life.
[2025-01-31] MEDS: ROBITUSSIN DM 10 ML PO ×2 (14:36→20:35)
[2025-01-31 15:25] VITALS: BP 141/65
--- NOTE | 2025-01-31 16:43 | PTCARENOTE ---
Pt AAO x3, CALLAHAN well, OOB to chair; ambulates to BR with assist x1; sl unsteady w/OOB activity; denies weakness/dizziness. VSS. Telemetry:Afib with V-pacing; occ PVC's. On room air- pulse ox 93%; pt with slight ALVARADO; denies SOB. Abd soft, musa PO
well. Voids in BR without difficulty- compliant with measuring output but frequently misses specipan. Resting in chair at present, no c/o. Will continue to monitor.
[2025-01-31] MEDS: COUMADIN 4 MG PO (17:19)
[2025-01-31 19:18] VITALS: BP 148/71
[2025-01-31] MEDS: MUCINEX 600 MG PO (20:37)
--- NOTE | 2025-01-31 20:44 | PTCARENOTE ---
Patient is oriented x3, cooperative, and ringing call kay appropriately for toileting/transfer needs. Pt. educated regarding use of bed alarms for high fall risk patients, pt. stated that she understood but has been ringing appropriately and is
refusing bed alarm at this time.
[2025-01-31 23:21] VITALS: BP 156/68
[2025-02-01 03:02] VITALS: BP 147/61
--- NOTE | 2025-02-01 04:14 | PTCARENOTE ---
Around 2100 on 01/31/25, pt. observed trying to get OOB without assistance despite prior agreement that she would call for assistance with OOB activity. Patient educated that bed alarm would have to be placed for her safety in order to prevent falls
r/t unassisted ambulation. Patient stated that 'this is ridiculous because I'm not a fall risk.' Patient educated regarding patient safety, fall prevention, and safe transfers. Patient agreeable and bed alarm in place at this time; bed in lowest
position, call kay in reach. Plan of care ongoing.
[2025-02-01 06:00] VITALS: BMI 19.7
[2025-02-01 06:53] LABS: Hematocrit 33.4 % (37.0-47.0); Hemoglobin 10.4 g/dL (12.0-16.0); Mean Corp Hgb Conc. 31.1 g/dL (33.0-37.0); Mean Corpuscular Volume 91.3 fL (81.0-99.0); Nucleated Red Blood Cells % 0 %; Platelet Count 154 10^3/uL (130-400); Red Cell Dist. Width 15.2 % (11.5-14.5)
[2025-02-01 06:58] LABS: INR 2.95; PT 30.9 Sec (11.4-14.6)
[2025-02-01 07:16] LABS: Blood Urea Nitrogen 40 mg/dl (7-17); Calcium 9.4 mg/dl (8.4-10.2); Carbon Dioxide 34 mmol/L (22-30); Chloride 101 mmol/L (98-107); Estimated Creatinine Clearance 39 ml/min; Glucose 97 mg/dl (70-99); Potassium 4.2 mmol/L (3.5-5.1); Sodium 136 mmol/L (135-145); eGFR > 60.00
[2025-02-01 07:30] VITALS: BP 127/51
[2025-02-01] MEDS: AUGMENTIN 875 MG/125 MG 1 TABLET PO (08:51)
[2025-02-01] MEDS: VIBRAMYCIN 100 MG PO (08:51)
[2025-02-01] MEDS: ALDACTONE 25 MG PO (08:51)
[2025-02-01] MEDS: NEURONTIN 300 MG PO (08:51)
[2025-02-01] MEDS: TENORMIN 25 MG PO (08:51)
[2025-02-01] MEDS: LASIX 40 MG IV (08:52)
[2025-02-01] MEDS: MUCINEX 600 MG PO (08:52)
[2025-02-01] MEDS: LANOXIN 125 MCG PO (08:54)
[2025-02-01 11:05] VITALS: BP 125/55
--- NOTE | 2025-02-01 12:07 | W.PN.HOSP.TC ---
Today's Communication/Plan
-
Patient improving, possible changed to oral Lasix, possible discharge today.
Assessment / Plan
Assessment / Plan
84F with [place]. Manas valve and aortic valve replacement on Coumadin (INR goal 2.5 to 3.5), atrial fibrillation, s/p pacemaker; p/w two-day history of mild cough, shortness of breath, and orthopnea
She also described subjective fever at home for which she took Tylenol. She has mild sore throat.
She denies to chest pain, abd pain, or other symptoms.
A/P:
Acute on chronic diastolic HF
suspect related to underlying valvular disease
COVID/Flu negative
cont IV Lasix 40 mg daily, appears to be improved, may switch to oral
Monitor daily weight, I/O
echo reviewed with patient, EF 45%, technically difficult study
Cards on board
Pt follow with Dr Cuevas and Dr Moscoso at [facility], she has moved to [place], hence will need to reestablish care here
Mild transaminitis resolved, was likely congestive hepatopathy due to CHF
Fever
Possible pneumonia
Noted procal 0.25
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
supportive care for cough
Acute hypoxic respiratory failure -resolved, on room air
83% on RA, was placed on 5L face mask, now weaned to RA. Pt not on home O2.
Acute nonischemic myocardial injury
Due to acute CHF
Trope peaked at 0.114
Pt denies to chest pain
h/o multiple valve replacements
including a [place] valve and aortic valve replacement on Coumadin (INR goal 2.5 to 3.5)
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
Atrial fibrillation s/p pacemaker
HR controlled, on AC
DVT ppx: Coumadin
Anticipated Discharge: Within 24 hours
Subjective/Interval History
-
Date of Service: February 01, 2025
Patient still having cough, but breathing feels good
Objective Data
-
Labs:
Laboratory Results
02/01/25
06:31
WBC 6.3
Hgb 10.4 L
Hct 33.4 L
Plt Count 154
PT 30.9 H
INR 2.95
Sodium 136
Potassium 4.2
Chloride 101
Carbon Dioxide 34 H
BUN 40 H
Creatinine 0.9
Glucose 97
Calcium 9.4
Vital Signs:
Vital Signs
Temp Pulse Resp BP Pulse Ox
98.4 F 61 16 127/51 93
02/01/25 07:30 02/01/25 07:30 02/01/25 07:30 02/01/25 07:30 02/01/25 07:30
I&O
01/31/25 02/01/25 02/02/25
06:59 06:59 06:59
Intake Total 1020 / 1020 1020 / 1020
Output Total 750 / 750 400 / 400
Balance 270 / 270 620 / 620
Review of Systems
-
All other systems: Reviewed and negative
Physical Exam
-
General: No Apparent Distress
HEENT: Moist Mucous Membranes, Anicteric and PERRLA
Respiratory: Clear to Auscultation and Rales (LLL); Negative Wheezes or Rhonchi
Cardiac: Regular Rhythm, S1/S2 and Murmur (Loud click murmur); Negative Rub or Gallop
GI: Soft, Nontender, Nondistended and Normal Bowel Sounds
Musculoskeletal: No Edema
Skin: Warm and Dry; Negative Rash, Ulcers or Lesions
Neuro: Awake and AO x 3
Hematologic / Lymphatic: No Lymphadenopathy
Psych: Calm
Data Reviewed
-
Diagnostic Radiology: Report Reviewed by me and Discussed with Patient
Ultrasound: Report Reviewed by me and Discussed with Patient
Labs: Labs Reviewed by me and Discussed with Patient
[2025-02-01] MEDS: TYLENOL 650 MG PO (12:43)
--- NOTE | 2025-02-01 13:21 | PN.CDI ---
CDI
- -
CDI:
Physician Documentation Request
Admit Date: 01/29/25 12:59
Dear Doctor Miguel,
Patient being managed for acute on chronic heart failure.
01/30 cardiology note states 'acute on chronic heart failure, preserved EF...'
01/31 echo reports 'Left ventricular ejection fraction visually estimated 40-45%.'
After careful study, Please clarify the most likely type of CHF you are evaluating, treating or monitoring.
HFrEF
HFmrEF
HFpEF
other
Use of terms such as suspected, likely, concern for, or probable (associated with a specific diagnosis that is being evaluated, monitored, or treated as if it exists) are acceptable and can be coded in the inpatient setting, when documented at the
time of discharge.
Thank you,
Kamilah Arreola RN, BSN
CDI Specialist
tiger text
Please use your independent medical judgment in providing your response.
--- NOTE | 2025-02-01 14:01 | W.PN.CARDCBS ---
Addendum entered and electronically signed by Sea Peralta MD 02/01/25 15:08:
I saw and examined the patient.
The CITY SUPERVISOR or PA's note was reviewed and I agree with the note.
Comment: General: Well developed, well nourished in NAD.
Neck: Supple, no JVD, HJR, carotids +2 B/L, no bruits bilaterally.
Heart: Non displaced PMI, RRR, no murmurs, No S3, S4, no rubs.
Lungs: scattered rhonchi
Extremities: No clubbing, cyanosis or edema bilaterally.
Neuro: Grossly nonfocal, awake, alert and oriented x3.
stable cardiology status for d/c. f/u arranged. d/w daughter and primary service
Original Note:
Today's Communication / Plan
-
Patient is requesting local cardiology follow-up and this is being arranged
Lasix 40 mg PO daily upon discharge to home
Patient will need long-term follow-up of her echo as well and we can handle this as an outpatient with Lexiscan nuclear stress test pending outpatient follow-up appointment
Impression / Plan
-
PCP: Dr. Ralph Watters
Security Team Lead: Dr. Beau Cuevas, Dr. Kristopher Moscoso - through [facility], patient requesting local cardiology follow-up upon discharge
Impression:
Admitted with acute hypoxic respiratory failure and acute HF 01/29/2025
Acute hypoxic respiratory failure
Acute HFpEF
Elevated troponin
Atrial fibrillation of unknown chronicity and duration
Suspect permanent A-fib with near 100% ventricular pacing and single-chamber device
s/p Med[employer] single-chamber PPM
s/p mechanical MVR 1995
Chronic warfarin OAC with INR goal of 2.5-3.5
s/p tricuspid valve ring repair 2013
s/p TAVR 2021
HTN
Echo 04/2024: Talent study, EF 50-55%, mildly dilated LA, mechanical mitral valve, annuloplasty tricuspid ring, mild TR, bioprosthetic aortic valve (TAVR)
Echo 01/31/2025: EF 40 to 45%, basal and mid inferior septum are akinetic with hypokinesis of the apical septum and basal anteroseptal segment, normal RV size and function, mechanical MVR with mean transmitral gradient of 5 mmHg and trace MR,
tricuspid annuloplasty ring present with mean TV gradient 6 mmHg and mild TR, TAVR present with peak/mean 18/10 mmHg and no evidence of aortic regurgitation
Plan:
-Patient came to the ER on 01/29/2025 as a new patient, she primarily follows with [facility] in [place] and she lives in [place], patient had symptoms of SOB and was admitted with what appeared to be acute HF and cardiology was consulted.
-Weight is down as much as 9 lbs depending on how accurate the recorded bed scale weights are. I&O not being accurately recorded. Oxygen requirements have improved and patient is now stable on RA.
-Patient is diuresing with Lasix 40 mg IV daily. Patient was taking Lasix 40 mg PO daily prior to admission and this has been restarted at time of discharge on 02/01/2025.
-Labs reviewed by me 02/01/2025 and Cre is stable at 0.9
-Echo report reviewed by me and summarized above on 01/31/2025, EF had been closer to 50 to 55% by an echo with her [employer] senior accountant analyst 04/2024 and is now down to 40 to 45%, but study is technically difficult. Patient is requesting local cardiology
follow-up, will arrange for patient to be seen within the next week and she will need long-term follow-up with a senior accountant analyst to follow-up on her echo as well.
-Outpatient dose of atenolol 25 mg daily has been continued
-Outpatient dose of spironolactone 25 mg daily has been continued
-Patient has atrial fibrillation of unclear chronicity and duration, but based on device interrogation reviewed by me on 01/31/2025 atrial fibrillation is permanent. Patient has a single-chamber device in place. Patient is V pacing almost 98% of
the time.
-Outpatient dose of digoxin 125 mg SuMoTuFrSa has been continued and digoxin level was low at 0.6 on admission.
-Patient is chronically on warfarin for her history of mechanical MVR in 1995, INR goal is 2.5-3.5. INR was 2.35 on admission and is up to 2.95 on my review of labs 02/01/2025. Outpatient dosing of warfarin 4 mg MoFr and 3.5 mg all other days has
been continued. Patient will be seen in the cardiology office within the next week and we can assure she has outpatient INR follow-up, INR's are usually followed by her PCP.
-Initial troponin was 0.021 and then peaked at 0.114. No complaints of any chest pain and no ischemic changes on ECG, but EF is now reduced on echo with WMA as outlined above. Will consider an outpatient Lexiscan nuclear stress test to evaluate
for any ischemia.
-Patient is stable for discharge and outpatient follow-up being arranged
Progress Note - Security Team Lead
Subjective
Date of Service: February 01, 2025
She feels improved and is looking forward to going home
Objective
Labs:
02/01/25 06:31
02/01/25 06:31
Labs
Hgb 10.4 g/dL (12.0-16.0) L 02/01/25 06:31
Hct 33.4 % (37.0-47.0) L 02/01/25 06:
Plt Count 154 10^3/uL (130-400) 02/01/25 06:31
PT 30.9 Sec (11.4-14.6) H 02/01/25 06:31
INR 2.95 02/01/25 06:31
Sodium 136 mmol/L (135-145) 02/01/25 06:31
Potassium 4.2 mmol/L (3.5-5.1) 02/01/25 06:
BUN 40 mg/dl (7-17) H 02/01/25 06:31
Creatinine 0.9 mg/dL (0.6-1.0) 02/01/25 06:31
Glucose 97 mg/dl (70-99) 02/01/25 06:31
Digoxin 0.6 ng/ml (0.8-2.0) L 01/30/25 05:48
Troponins
01/29/25 01/30/25 01/30/25
18:01 01:07 05:48
Troponin I 0.021 0.114 H* D 0.100 H*
01/30/25 01/30/25
11:41 18:09
Troponin I 0.073 H* D 0.065 H*
Vital Signs and I&O:
Vital Signs
Temp Pulse Resp BP Pulse Ox
99.3 F 61 16 125/55 96
02/01/25 11:05 02/01/25 11:05 02/01/25 11:05 02/01/25 11:05 02/01/25 11:05
Vital Signs
Temp Pulse Resp BP Pulse Ox
99.3 F 61 16 125/55 96
02/01/25 11:05 02/01/25 11:05 02/01/25 11:05 02/01/25 11:05 02/01/25 11:05
Intake & Output
01/30/25 01/31/25 02/01/25 02/02/25
06:59 06:59 06:59 06:59
Intake Total 1020 / 1020 1020 / 1020
Output Total 150 / 150 750 / 750 400 / 400
Balance -150 / -150 270 / 270 620 / 620
Physical Exam
Physical Exam
GEN: NAD
LUNGS: RA. No audible wheeze
CV: V paced with underlying A-fib on telemetry.
--- NOTE | 2025-02-01 14:28 | W.DCSUMMARY ---
Discharge Summary
Discharge Data
Date of Admission: 01/29/25
Date of Discharge: 02/01/25
Total time spent discharging patient (in min): 32
-
Pending Results: No
Hospital Course
Attending physician on day of discharge:
Melia Rivera MD
Discharge diagnosis:
Acute on chronic diastolic CHF
Acute hypoxic RF
Pneumonia
Secondary diagnoses:
HFpEF
AF
Consultations:
Cardiology
Procedures:
None
Hospital course:
84F with [place] valve and aortic valve replacement on Coumadin (INR goal 2.5 to 3.5), atrial fibrillation, s/p pacemaker; p/w two-day history of mild cough, shortness of breath, and orthopnea. Found to have acute CHF exacerbation as well as
pneumonia with hypoxia requiring 5 L O2. Was treated with IV Lasix and Augmentin/doxycycline. She had improvement, was weaned off oxygen, was taken off of IV Lasix and given a prescription for the remainder of the course of antibiotics.
Diagnostic Findings:
CXR:1. Mild acute interstitial cardiogenic pulmonary edema.
2. Mild to moderate elevation of the right hemidiaphragm.
3. Moderate to severe cardiomegaly.
4. Previous tricuspid valve replacement.
5. Previous TAVR.
6. Cardiac pacemaker in place.
Physical exam on discharge:
See note
Discharge disposition:
Home
Discharge Plan
-
Patient Disposition: Home (Routine Discharge)
Discharge Diagnosis/Procedures: CHF exacerbation, Pneumonia
Diet: Low Cholesterol
Activity: As tolerated
Specialty Instructions: Weigh Daily- Call MD for wt gain/loss 3 lbs overnight/5 lbs in 1 week
Instructions: Pneumonia in adults (DC), *PCP/Other Keyboard Instrument Tuner Heart Failure Instructions
Referrals:
Ralph Watters MD [Family Provider, General]
Tiago Avina DO [Active, Cardiology]
Referral Note: The cardiology office will call you with a hospital follow-up appointment.
Prescriptions:
New
doxycycline hyclate 100 mg Capsule
100 mg PO DAILY 2 Days Qty: 2 0RF
amoxicillin-pot clavulanate 875-125 mg Tablet
1 tab PO Q12 3 Days Qty: 6 0RF
guaifenesin 600 mg Tablet Extended Release 12hr
600 mg PO Q12 7 Days Qty: 14 0RF
furosemide [Lasix] 40 mg tablet
40 mg PO DAILY Qty: 30 0RF
Continued
acetaminophen [Tylenol] 325 mg Tablet
650 mg PO Q6HPRN PRN (Reason: mild pain)
guaifenesin 100 mg/5 mL Liquid
200 mg PO BIDPRN PRN (Reason: cough)
diphenhydramine HCl [Benadryl] 25 mg Capsule
25 mg PO HSPRN PRN (Reason: allergies)
digoxin 125 mcg (0.125 mg) Tablet
125 mcg PO SUMOTUFRSA
atenolol 25 mg Tablet
25 mg PO DAILY
spironolactone 25 mg Tablet
25 mg PO DAILY
gabapentin 300 mg Capsule
300 mg PO BID
warfarin 4 mg Tablet
4 mg PO MOFR
warfarin 3 mg Tablet
3.5 mg PO SUTUWETHSA
sodium chloride 0.65 % Aerosol,[place]
1 spray INTRANASAL DAILY
Discontinued
furosemide [Lasix] 20 mg Tablet
40 mg PO DAILY
Discharge Orders:
Discharge Patient (As Directed); Ordered 02/01/25
Ordered By: Melia Rivera
Discharge Date and Time
Discharge Date/Time: 02/01/25 15:05
Print Language: UPPER SORBIAN
[2025-02-01 14:51] VITALS: BP 147/62
--- NOTE | 2025-02-01 16:39 | CM ---
MD entered order for discharge.
Spoke with patient she said she was ready for discharge.
IMM signed on chart.
Brother will drive her home.
PLAN Home no0 needs
--- NOTE | 2025-02-02 11:46 | W.HF.CON ---
Heart Failure
- LV Function
Left ventricular function study result: LV Ejection fraction 41-49%
Ejection Fraction Percentage: 40-45
- ARNI
Patient already on ARNI: No
Heart Failure ARNI Not Indicated: LV Ejection Fraction >/= 40%
- ACEI/ARB
Patient already on ACEI/ARB: No
Heart Failure ACEI/ARB Not Indicated: LV Ejection Fraction > 40%
- Beta Burton
Patient already on Evidence Based Beta Burton: No
Heart Failure Evidence Based Beta [place] Not Indicated: LV Ejection Fraction > 40%
- Mineralocorticord Receptor Antagonist
Patient already on MRA: Yes
- SGLT-2 Inhibitor
Patient already on SGLT-2 Inhibitor: No
Heart Failure SGLT-2 Inhibitor Not Indicated: LV Ejection Fraction >40%
- Afib Anticoagulation
Patient already on Anticoagulation for Afib: Yes
- NYHA CHF Classification
NYHA CHF Classification Level: Class III - Symptoms w/ min exertion, interferes w/ nml daily activity
- ACC/AHA Stage
ACC/AHA Stage: Stage C: Symptomatic Heart Failure
== END 2025-02-01 15:05 | disposition home or self-care (01) | DRG 291 ==
LOC: 4 EAST ACU 12:59
PROVIDERS: Internal Medicine Cardiovascular Disease; Registered Nurse; ADMITTING PHYSICIAN Internal Medicine; ATTENDING PHYSICIAN Internal Medicine; CONSULT PHYSICIAN Internal Medicine Cardiovascular Disease; EMERGENCY PHYSICIAN Emergency Medicine; FAMILY PHYSICIAN Internal Medicine
PROC: 4B02XSZ Measurement of Cardiac Pacemaker, External Approach (ICD-10-PCS; 2025-01-31)
DX: I11.0 Hypertensive heart disease with heart failure (principal); I50.33 Acute on chronic diastolic (congestive) heart failure; J18.9 Pneumonia, unspecified organism; J96.91 Respiratory failure, unspecified with hypoxia; I48.21 Permanent atrial fibrillation; I5A Non-ischemic myocardial injury (non-traumatic); D64.9 Anemia, unspecified; R04.0 Epistaxis; I08.1 Rheumatic disorders of both mitral and tricuspid valves; Z79.01 Long term (current) use of anticoagulants; Z79.899 Other long term (current) drug therapy; Z95.0 Presence of cardiac pacemaker; Z11.52 Encounter for screening for COVID-19
CPT/HCPCS: 71046; 80048; 80053; 80162; 82248; 83735; 83880; 84145; 84484; 85025; 85027; 85610; 87502; 87811; 93005; 93306; 96374; 97110; 97116; 97162; 99291